=== PATIENT | male | born 1980 | race Caucasian/White ===

== ENCOUNTER 2023-05-16 13:22 | Emergency (ER) | payer BC ==
[~2023-05-16] VITALS: Ht 188 cm; Wt 88.5 kg
[2023-05-16 13:50] VITALS: BP 128/79; TEMP 98.1
[2023-05-16] MEDS ORDERED: dexaMETHasone SOD PHOSPHATE 1 ML ONE (14:28)
[2023-05-16] MEDS ORDERED: dexaMETHasone SOD PHOSPHATE 10 MG/ML VIAL IM ONE (14:30)
[2023-05-16 14:39] VITALS: O2SAT 98
== END 2023-05-16 14:40 | disposition home or self-care (01) ==
LOC: ER 13:25
DX: J04.0 Acute laryngitis (principal); R49.1 Aphonia; Z98.890 Other specified postprocedural states; Z60.2 Problems related to living alone; Z88.2 Allergy status to sulfonamides
CPT/HCPCS: 99283; 96372; J1100